=== PATIENT | female | born 1940 | race Caucasian/White ===

== ENCOUNTER 2016-10-07 07:59 | Inpatient (IN) | payer OTHER ==
[~2016-10-07] VITALS: Ht 165.1 cm; Wt 53.2 kg
[~2016-10-07 07:59] MED LIST: ASMANEX TW200 MICROG IH; ATORVASTATIN CA20 MG PO; BENTYL20 MG PO; CIPRO500 MG PO; FLAGYL500 MG PO; HYDROCHLOROTH12.5 M3 PO; MONTELUKAST SOD10 MG PO; NOHOMEMEDS; PROAIR HFA8.5 GM IH; VITAMIN D-32000 UNI2 PO
[2016-10-07 08:47] LABS: HEMATOCRIT 42.1 % (36.0-46.0); MCH 30.5 PG (29.0-34.0); MCHC 33.7 G/DL (30.0-36.0); MCV 90.3 FL (83-99); MEAN PLAT.VOLUME 9.9 uM^3 (9.5-12.4); PLATELET COUNT 183 K/uL (156-360); RBC DIS.WIDTH-CV 13.2 % (11.8-14.6); RED BLOOD COUNT 4.66 M/uL (3.80-5.20)
[2016-10-07 08:50] LABS: EOSINOPHIL (%) 0 % (0-5); IMMATURE GRANULOCYTE (%) 0.4 % (0.0-0.7); IMMATURE GRANULOCYTE COUNT 0.7 K/uL; LYMPHOCYTE COUNT 1.8 K/uL (1.0-2.8); MONOCYTE (%) 10.5 % (3-12); MONOCYTE COUNT 1.8 K/uL (0-0.8); NEUTROPHIL (%) 78.6 % (45-76); NEUTROPHIL COUNT 13.3 K/uL (1.8-6.4)
[2016-10-07 09:22] LABS: ANION GAP 13 MEQ/L (2-14); CHLORIDE 96 MEQ/L (99-109); POTASSIUM 2.7 MEQ/L (3.7-5.4); SAMPLE HEMOLYSIS CHECK 0; SAMPLE ICTERIC CHECK 0; SAMPLE LIPEMIA CHECK 0; SODIUM 141 MEQ/L (136-147); TOTAL BILIRUBIN 0.7 MG/DL (0.0-1.0)
[2016-10-07 09:28] LABS: ALKALINE PHOSPHATASE 61 IU/L (3-129); GFR ESTIMATE (CALCULATED) > 59 mL/min/; GLUCOSE 119 mg/dL (70-99); UREA NITROGEN (BUN) 14 mg/dL (9-23)
[2016-10-07 09:30] LABS: HEMATOLOGY COMMENT 1 SMEAR COMPATIBLE; USER ID SDF
[2016-10-07 09:31] LABS: TROP-I INTERPRETATION NEGATIVE; TROPONIN-I < 0.01 ng/mL (0.0-0.30)
[2016-10-07] MEDS ORDERED: VITAMIN D31000 UNIT PO (10:21)
[2016-10-07] MEDS ORDERED: CENTRUM SILVER1 EAC4 PO (10:22)
[2016-10-07] MEDS ORDERED: CITRACAL D + H1 EACH PO (10:22)
[2016-10-07 16:09] VITALS: BP 132/81
[2016-10-08 00:43] VITALS: BP 109/69
[2016-10-08 06:05] LABS: EOSINOPHIL (%) 0.2 % (0-5); HEMATOCRIT 39.6 % (36.0-46.0); IMMATURE GRANULOCYTE (%) 0.2 % (0.0-0.7); LYMPHOCYTE COUNT 2.8 K/uL (1.0-2.8); MCH 30.1 PG (29.0-34.0); MCHC 32.6 G/DL (30.0-36.0); MCV 92.5 FL (83-99); MEAN PLAT.VOLUME 10.3 uM^3 (9.5-12.4); MONOCYTE (%) 6.2 % (3-12); MONOCYTE COUNT 0.8 K/uL (0-0.8); NEUTROPHIL (%) 70.2 % (45-76); NEUTROPHIL COUNT 8.4 K/uL (1.8-6.4); PLATELET COUNT 152 K/uL (156-360); RBC DIS.WIDTH-CV 13.6 % (11.8-14.6); RBC DIS.WIDTH-SD 45.3 % (39-53); RED BLOOD COUNT 4.28 M/uL (3.80-5.20)
[2016-10-08 07:52] LABS: INTERNAL CONTROL VALID? YES
[2016-10-08 08:19] VITALS: BP 110/64
[2016-10-08 13:21] LABS: HEMATOCRIT 39.3 % (36.0-46.0); MCH 30.7 PG (29.0-34.0); MCHC 33.1 G/DL (30.0-36.0); MCV 92.7 FL (83-99); MEAN PLAT.VOLUME 10.5 uM^3 (9.5-12.4); PLATELET COUNT 148 K/uL (156-360); RBC DIS.WIDTH-CV 13.6 % (11.8-14.6); RED BLOOD COUNT 4.24 M/uL (3.80-5.20); WHITE BLOOD COUNT 10.6 K/uL (4.1-10.2)
[2016-10-08 13:54] LABS: ANION GAP 9 MEQ/L (2-14); CHLORIDE 103 MEQ/L (99-109); GFR ESTIMATE (CALCULATED) > 59 mL/min/; GLUCOSE 115 mg/dL (70-99); POTASSIUM 3.4 MEQ/L (3.7-5.4); SAMPLE HEMOLYSIS CHECK 0; SAMPLE ICTERIC CHECK 0; SAMPLE LIPEMIA CHECK 0; SODIUM 142 MEQ/L (136-147); UREA NITROGEN (BUN) 16 mg/dL (9-23)
[2016-10-08 16:07] VITALS: BP 119/60
[2016-10-09] VITALS: BP 121/85
[2016-10-09 07:28] VITALS: BP 125/78
[2016-10-09 08:56] LABS: HEMATOCRIT 39.4 % (36.0-46.0); MCH 30.4 PG (29.0-34.0); MCHC 33.2 G/DL (30.0-36.0); MCV 91.4 FL (83-99); MEAN PLAT.VOLUME 10.2 uM^3 (9.5-12.4); PLATELET COUNT 173 K/uL (156-360); RBC DIS.WIDTH-CV 13.4 % (11.8-14.6); RBC DIS.WIDTH-SD 44.9 % (39-53); RED BLOOD COUNT 4.31 M/uL (3.80-5.20); WHITE BLOOD COUNT 9.5 K/uL (4.1-10.2)
[2016-10-09 09:28] LABS: ANION GAP 10 MEQ/L (2-14); CHLORIDE 106 MEQ/L (99-109); GFR ESTIMATE (CALCULATED) > 59 mL/min/; GLUCOSE 102 mg/dL (70-99); POTASSIUM 3.6 MEQ/L (3.7-5.4); SAMPLE HEMOLYSIS CHECK 0; SAMPLE ICTERIC CHECK 0; SAMPLE LIPEMIA CHECK 0; SODIUM 143 MEQ/L (136-147); UREA NITROGEN (BUN) 12 mg/dL (9-23)
[2016-10-09 23:44] VITALS: BP 129/75
[2016-10-10 04:08] VITALS: BP 116/69
[2016-10-10 07:24] VITALS: BP 131/74
[2016-10-10 10:17] LABS: ANION GAP 12 MEQ/L (2-14); CHLORIDE 107 MEQ/L (99-109); SAMPLE HEMOLYSIS CHECK 0; SAMPLE ICTERIC CHECK 0; SAMPLE LIPEMIA CHECK 0; SODIUM 145 MEQ/L (136-147)
[2016-10-10 10:23] LABS: GFR ESTIMATE (CALCULATED) > 59 mL/min/; GLUCOSE 123 mg/dL (70-99); UREA NITROGEN (BUN) 12 mg/dL (9-23)
[2016-10-10] MEDS ORDERED: LEVOFLOXACIN500 MG PO (15:23)
[2016-10-10 15:58] VITALS: BP 148/80
== END 2016-10-10 17:35 | disposition home or self-care (01) | DRG 189 ==
LOC: EME 07:59 → 5SOUTH 09:37 → EDOF 09:37 → 5SOUTH 15:51
PROVIDERS: Emergency Medicine; Hospitalist; Internal Medicine; Nurse Practitioner Adult Health
DX: J96.01 Acute respiratory failure with hypoxia (principal); J18.9 Pneumonia, unspecified organism; J45.901 Unspecified asthma with (acute) exacerbation; Z68.1 Body mass index [BMI] 19.9 or less, adult; J90 Pleural effusion, not elsewhere classified; I10 Essential (primary) hypertension; E78.5 Hyperlipidemia, unspecified; E87.6 Hypokalemia; Z80.7 Family history of other malignant neoplasms of lymphoid, hematopoietic and related tissues
CPT/HCPCS: 71020; 80048; 80053; 83605; 84484; 85025; 85027; 87040; 87449; 93005; 94640; 94640 76; 94799; 99202; 99281; 99285; J0456; J0696; J1650; J3480; J7050

== ENCOUNTER 2017-02-01 21:00 | Emergency (ER) | payer OTHER ==
[~2017-02-01] VITALS: Ht 165.1 cm; Wt 65.0 kg
[~2017-02-01 21:00] MED LIST changes: +CENTRUM SILVER1 EAC4 PO; +CITRACAL D + H1 EACH PO; +LEVOFLOXACIN500 MG PO; +VITAMIN D31000 UNIT PO
[2017-02-01 21:04] VITALS: BP 00/00
[2017-02-01 21:37] LABS: HEMATOCRIT 42.6 % (36.0-46.0); MCH 30.1 PG (29.0-34.0); MCHC 32.4 G/DL (30.0-36.0); MEAN PLAT.VOLUME 9.2 uM^3 (9.5-12.4); PLATELET COUNT 207 K/uL (156-360); RBC DIS.WIDTH-CV 12.8 % (11.8-14.6); RBC DIS.WIDTH-SD 43.7 % (39-53); RED BLOOD COUNT 4.58 M/uL (3.80-5.20); WHITE BLOOD COUNT 9.6 K/uL (4.1-10.2)
[2017-02-01 21:51] LABS: CHLORIDE 106 mEq/L (99-109); POTASSIUM 3.4 mEq/L (3.7-5.4); SODIUM 143 mEq/L (136-147)
[2017-02-01 21:52] LABS: GLUCOSE 115 mg/dL (70-99)
[2017-02-01 21:54] LABS: ANION GAP 11 MEQ/L (2-14)
[2017-02-01 21:56] LABS: GFR ESTIMATE (CALCULATED) > 59 mL/min/
[2017-02-01 21:57] LABS: UREA NITROGEN (BUN) 26 mg/dL (9-23)
[2017-02-01 22:04] LABS: TROP-I INTERPRETATION NEGATIVE; TROPONIN-I < 0.01 ng/mL (0.0-0.30)
== END 2017-02-01 23:01 | disposition home or self-care (01) ==
LOC: EME 21:00
DX: R00.2 Palpitations (principal); E78.5 Hyperlipidemia, unspecified; I10 Essential (primary) hypertension
CPT/HCPCS: 71020; 80048; 84484; 85027; 93005; 99281; 99284

== ENCOUNTER 2017-02-07 07:09 | Emergency (ER) | payer OTHER ==
[~2017-02-07] VITALS: Ht 165.1 cm; Wt 63.6 kg
[2017-02-07] MEDS ORDERED: MAGNESIUM250 MG PO (07:34)
[2017-02-07 07:42] LABS: MCH 30.1 PG (29.0-34.0); MCHC 32.6 G/DL (30.0-36.0); MCV 92.4 FL (83-99); MEAN PLAT.VOLUME 9.4 uM^3 (9.5-12.4); PLATELET COUNT 235 K/uL (156-360); RBC DIS.WIDTH-CV 12.6 % (11.8-14.6); RBC DIS.WIDTH-SD 42.6 % (39-53); RED BLOOD COUNT 4.98 M/uL (3.80-5.20); WHITE BLOOD COUNT 8.7 K/uL (4.1-10.2)
[2017-02-07 07:52] LABS: CHLORIDE 101 mEq/L (99-109); SODIUM 140 mEq/L (136-147)
[2017-02-07 07:53] LABS: POTASSIUM 4.5 mEq/L (3.7-5.4)
[2017-02-07 07:54] LABS: GLUCOSE 110 mg/dL (70-99)
[2017-02-07 07:55] LABS: ANION GAP 8 MEQ/L (2-14)
[2017-02-07 07:57] LABS: GFR ESTIMATE (CALCULATED) > 59 mL/min/
[2017-02-07 07:58] LABS: UREA NITROGEN (BUN) 17 mg/dL (9-23)
[2017-02-07 08:04] LABS: TROP-I INTERPRETATION NEGATIVE; TROPONIN-I < 0.01 ng/mL (0.0-0.30)
[2017-02-07 08:21] VITALS: BP 121/75
== END 2017-02-07 08:25 | disposition home or self-care (01) ==
LOC: EME 07:09
PROVIDERS: Emergency Medicine
DX: R00.2 Palpitations (principal); I10 Essential (primary) hypertension; E78.5 Hyperlipidemia, unspecified; J45.909 Unspecified asthma, uncomplicated; Z91.09 Other allergy status, other than to drugs and biological substances
CPT/HCPCS: 80048; 83880; 84484; 85027; 93005; 99281; 99284

== ENCOUNTER 2017-06-18 21:18 | Emergency (ER) | payer OTHER ==
[~2017-06-18] VITALS: Ht 165.1 cm; Wt 68.3 kg
[~2017-06-18 21:18] MED LIST changes: +MAGNESIUM250 MG PO
[2017-06-19 00:17] LABS: HEMATOCRIT 39.7 % (36.0-46.0); MCH 30.3 PG (29.0-34.0); MCHC 32.5 G/DL (30.0-36.0); MCV 93.2 FL (83-99); MEAN PLAT.VOLUME 9.2 uM^3 (9.5-12.4); PLATELET COUNT 191 K/uL (156-360); RBC DIS.WIDTH-CV 13.1 % (11.8-14.6); RBC DIS.WIDTH-SD 44.7 % (39-53); RED BLOOD COUNT 4.26 M/uL (3.80-5.20); WHITE BLOOD COUNT 10.5 K/uL (4.1-10.2)
[2017-06-19 00:29] LABS: CHLORIDE 106 mEq/L (99-109); POTASSIUM 3.7 mEq/L (3.7-5.4); SODIUM 144 mEq/L (136-147)
[2017-06-19 00:31] LABS: GLUCOSE 116 mg/dL (70-99)
[2017-06-19 00:33] LABS: ANION GAP 12 MEQ/L (2-14)
[2017-06-19 00:35] LABS: GFR ESTIMATE (CALCULATED) > 59 mL/min/
[2017-06-19 00:36] LABS: UREA NITROGEN (BUN) 23 mg/dL (9-23)
[2017-06-19 00:38] LABS: TROP-I INTERPRETATION NEGATIVE; TROPONIN-I < 0.01 ng/mL (0.0-0.30)
[2017-06-19 01:15] VITALS: BP 153/68
== END 2017-06-19 01:16 | disposition home or self-care (01) ==
LOC: EXP 21:18 → EME 21:18 → EXP 06-19 01:16
PROVIDERS: Physician Assistant
DX: R00.2 Palpitations (principal); I10 Essential (primary) hypertension; J45.909 Unspecified asthma, uncomplicated; E78.5 Hyperlipidemia, unspecified
CPT/HCPCS: 80048; 84484; 85027; 93005; 99281; 99284

== ENCOUNTER 2018-01-13 18:35 | Emergency (ER) | payer OTHER ==
[~2018-01-13] VITALS: Ht 162.6 cm; Wt 63.0 kg
[2018-01-13] MEDS ORDERED: KEFLEX500 MG PO (23:01)
[2018-01-13 23:45] VITALS: BP 143/76
== END 2018-01-13 23:45 | disposition home or self-care (01) ==
LOC: EME 18:35
DX: S61.220A Laceration with foreign body of right index finger without damage to nail, initial encounter (principal); S61.222A Laceration with foreign body of right middle finger without damage to nail, initial encounter; W23.0XXA Caught, crushed, jammed, or pinched between moving objects, initial encounter; Y92.71 Barn as the place of occurrence of the external cause; Z23 Encounter for immunization
CPT/HCPCS: 73130; 99281; 99284; S0020